=== PATIENT | male | born 1980 | race Two or more races ===

== ENCOUNTER 2023-07-29 16:16 | Emergency (ER) | payer OTHER ==
[~2023-07-29] VITALS: Ht 188 cm; Wt 90.7 kg
[2023-07-29 16:50] VITALS: BP 120/66; TEMP 98.1
[2023-07-29 18:19] VITALS: O2SAT 99
== END 2023-07-29 18:15 | disposition home or self-care (01) ==
LOC: ER 16:24
DX: S99.922A Unspecified injury of left foot, initial encounter (principal); W04.XXXA Fall while being carried or supported by other persons, initial encounter; Y93.89 Activity, other specified; Y92.89 Other specified places as the place of occurrence of the external cause; Y99.8 Other external cause status
CPT/HCPCS: 73630-TC